=== PATIENT | male | born 1970 | race Two or more races ===

== ENCOUNTER 2022-02-23 09:47 | Observation (INO) | payer OTHER ==
[2022-02-23] MEDS ORDERED: SODIUM CHLORIDE 0.9% 1000 ML INFUS.BAG IV ONE ×2 (10:15→14:02)
[2022-02-23 10:44] LABS: BASO % 0.7 % (0-2.0); EOS % 1.9 % (0-4.5); HEMOGLOBIN 12.6 GM/dL (11.7-16.9); LYMPH % 3.2 % (8-40); MCH 25.5 pg (25.7-33.7); MCHC 32.2 g/dl (32.0-35.9); MEAN CELL VOLUME 79.1 fl (80-96); MEAN PLT VOLUME 8.5 fl (7.5-11.1); MONO % 7.7 % (3.8-10.2); NEUT % 86.5 % (42.8-82.8); PLATELET COUNT 257 10^3/uL (134-434); RBC 4.93 M/mm3 (4.00-5.60); RDW 14.9 % (11.9-15.9); WHITE BLOOD COUNT 14.8 K/mm3 (4.0-10.0)
[2022-02-23 11:16] LABS: ALBUMIN 3.5 g/dl (3.4-5.0); BLOOD UREA NITROGEN 31.9 mg/dL (7-18)
[2022-02-23 11:19] LABS: CREATININE 1.4 mg/dL (0.55-1.3)
[2022-02-23 11:21] LABS: BILIRUBIN,TOTAL 0.6 mg/dL (0.2-1); TOT PROT 6.2 g/dl (6.4-8.2)
[2022-02-23 11:30] VITALS: BMI 22.1
[2022-02-23 18:32] LABS: URINE APPEARANCE CLEAR; URINE BILIRUBIN NEGATIVE (NEGATIVE); URINE COLOR YELLOW; URINE GLUCOSE (UA) NEGATIVE (NEGATIVE); URINE KETONE NEGATIVE (NEGATIVE); URINE LEUK ESTERASE NEGATIVE (NEGATIVE); URINE NITRITE NEGATIVE (NEGATIVE); URINE PROTEIN NEGATIVE (NEGATIVE); URINE UROBILINOGEN 0.2 mg/dL (0.2-1.0)
[2022-02-23] MEDS: SODIUM CHLORIDE 1,000 ML IV SCH (19:17)
[2022-02-23] MEDS: INSULIN SLIDING SCALE (NOVOLOG) 1 VIAL SQ SCH (22:17)
[2022-02-23] MEDS: ROSUVASTATIN CA 20 MG TABLET PO SCH (22:17)
[2022-02-24 07:23] LABS: EOS % 14.4 % (0-4.5); HEMOGLOBIN 10.9 GM/dL (11.7-16.9); LYMPH % 20.4 % (8-40); MCH 26.6 pg (25.7-33.7); MEAN CELL VOLUME 78.1 fl (80-96); MEAN PLT VOLUME 9.1 fl (7.5-11.1); NEUT % 56.2 % (42.8-82.8); PLATELET COUNT 203 10^3/uL (134-434); RDW 14.7 % (11.9-15.9); WHITE BLOOD COUNT 8.8 K/mm3 (4.0-10.0)
[2022-02-24] MEDS: INSULIN SLIDING SCALE (NOVOLOG) 1 VIAL SQ SCH ×4 (07:48→21:15)
[2022-02-24 08:01] LABS: ALBUMIN 3.1 g/dl (3.4-5.0)
[2022-02-24 08:02] LABS: BLOOD UREA NITROGEN 25.6 mg/dL (7-18)
[2022-02-24 08:06] LABS: TOT PROT 5.4 g/dl (6.4-8.2)
[2022-02-24 08:07] LABS: BILIRUBIN,TOTAL 0.2 mg/dL (0.2-1)
[2022-02-24] MEDS ORDERED: methaDONE HCL 40 MG DISPERSABLE TABLET ONE (10:31)
[2022-02-24] MEDS: methaDONE HCL 40 MG DISPERSABLE TABLET PO SCH (10:53)
[2022-02-24] MEDS: SODIUM CHLORIDE 1,000 ML IV SCH ×2 (16:21→19:30)
[2022-02-24] MEDS: ROSUVASTATIN CA 20 MG TABLET PO SCH (21:12)
[2022-02-25] MEDS: methaDONE HCL 40 MG DISPERSABLE TABLET PO SCH (06:08)
[2022-02-25] MEDS: INSULIN SLIDING SCALE (NOVOLOG) 1 VIAL SQ SCH ×4 (06:12→22:15)
[2022-02-25] MEDS: SODIUM CHLORIDE 1,000 ML IV SCH (06:15)
[2022-02-25 09:22] LABS: CALCIUM 9.3 mg/dL (8.5-10.1)
[2022-02-25 09:23] LABS: ALBUMIN 3.5 g/dl (3.4-5.0); BLOOD UREA NITROGEN 16.6 mg/dL (7-18)
[2022-02-25 09:26] LABS: CREATININE 0.9 mg/dL (0.55-1.3)
[2022-02-25 09:27] LABS: BILIRUBIN,TOTAL 0.3 mg/dL (0.2-1); TOT PROT 6.2 g/dl (6.4-8.2)
[2022-02-25] MEDS: ROSUVASTATIN CA 20 MG TABLET PO SCH (22:14)
[2022-02-26] MEDS: methaDONE HCL 40 MG DISPERSABLE TABLET PO SCH (06:24)
[2022-02-26] MEDS: INSULIN SLIDING SCALE (NOVOLOG) 1 VIAL SQ SCH ×2 (06:24→13:13)
[2022-02-26 06:30] VITALS: BP 130/79; PULSE 86; TEMP 98.1
== END 2022-02-26 18:52 | disposition home or self-care (01) ==
LOC: JER 09:47 → JERBED 14:41 → J7W 02-24 15:20
PROVIDERS: ADMIT Internal Medicine; ATTEND Internal Medicine
PROC: 3E013VG Introduction of Insulin into Subcutaneous Tissue, Percutaneous Approach (ICD-10-PCS; principal; 2022-02-23)
PROC: 3E0337Z Introduction of Electrolytic and Water Balance Substance into Peripheral Vein, Percutaneous Approach (ICD-10-PCS; 2022-02-23)
DX: N17.9 Acute kidney failure, unspecified (principal); E86.0 Dehydration; E11.65 Type 2 diabetes mellitus with hyperglycemia; I10 Essential (primary) hypertension; E78.5 Hyperlipidemia, unspecified; F17.210 Nicotine dependence, cigarettes, uncomplicated; R42 Dizziness and giddiness; R55 Syncope and collapse; F12.20 Cannabis dependence, uncomplicated; F11.20 Opioid dependence, uncomplicated
CPT/HCPCS: 36415; 80053; 80061; 81003; 82550; 82962; 84484; 85025; 86850; 86900; 86901; 87086; 93005; 93010; 93306-TC; 97161-GP; 99285-25; C9803-CS; G0378; U0003; U0005

== ENCOUNTER 2022-03-03 22:39 | Emergency (ER) | payer OTHER ==
[2022-03-03 23:42] VITALS: BP 142/69; PULSE 90; TEMP 98.7; BMI 22.8
== END 2022-03-04 00:31 | disposition home or self-care (01) ==
LOC: JER 22:39
DX: N43.3 Hydrocele, unspecified (principal)
CPT/HCPCS: 76870-TC; 99284-25